=== PATIENT | male | born 1965 ===

== ENCOUNTER 2017-11-24 07:50 | Day surgery (SDC) | payer BC ==
[2017-11-24] MEDS ORDERED: fentaNYL 100 MCG/2 ML INJ IVP ONE (07:51)
[2017-11-24] MEDS ORDERED: NS 500 ML IV ONE (07:51)
[2017-11-24] MEDS ORDERED: MIDAZOLAM 2 MG/2 ML VIAL IVP ONE (07:51)
[2017-11-24] MEDS ORDERED: BENZOCAINE UNIT DOSE SPRAY HURRICAINE MM ONE (07:51)
[2017-11-24] MEDS ORDERED: ATROPINE SULFATE 1 MG/10 ML SYR ONE (09:03)
--- NOTE | 2017-11-24 09:21 | PDPROPOC ---
Sedation Plan of Care Sedation Plan of Care: vital signs stable, mental status noted, patient educated of risks, benefits, alternatives, patient can tolerate sedation ASA Classification: ASA 2 Planned drugs: fentanyl, midazolam Mallampati Score: Class 2 Mallampati Reference Image: Patient passed 3-3-2 rule?: Yes
--- NOTE | 2017-11-24 09:21 | PDHPUP ---
History & Physical Update H&P update statement: This history and physical update is based on an assessment of the patient which was completed after admission or registration (within 24 hours), but prior to the surgery/procedure. H&P update: H&P reviewed & patient examined, no change in patient's condition since H&P completed (Pt here for BERTA in the setting of sever AI and VSD )
[2017-11-24] MEDS ORDERED: fentaNYL 100 MCG/2 ML INJ ONE (09:35)
[2017-11-24] MEDS ORDERED: MIDAZOLAM 2 MG/2 ML VIAL ONE ×2 (09:35→09:49)
--- NOTE | 2017-11-24 11:12 | ECHO ---
[email or web address] [address] [address] Main: [phone] Fax: Transesophageal Echocardiography Name: ELIAS WORRELL MR#: [id number] Study Date: 11/24/2017 Study Time: 08:59 AM Date of : 1965 Age: 52 year(s) Height: ( ) Weight: ( ) BSA: Gender: Male Examination: BERTA Indication: Eval AI and VSD Image Quality: Contrast: Requested by: Sebastian Mastres Heart Rate: Rhythm: BP: 126 mmHg/60 mmHg Procedure Staff [employer] Internship: Josselyn Andujar RDCS Reading Physician: Sebastian Masters Requesting Provider: BERTA Exam Details Conclusions: Moderate concentric LV hypertrophy. Normal global systolic LV function. The aortic valve is tri-leaflet. Severe eccentric jet of aortic regurgitation.. Measurements: Chambers Valvular Assessment AV/MV Valvular Assessment TV/PV Normal Normal Normal Name Value Range Name Value Range Name Value Range Additional Measurements: Findings: Left Ventricle: Moderate concentric LV hypertrophy. Mild EPI is present. Normal global systolic LV function. No regional wall motion abnormality. Right Ventricle: Normal RV function. Left Atrium: The left atrium is normal in size. Left Atrial Appendage: No thrombus in left appendage. Right Atrium: Patient: ELIAS WORRELL Study Date: 11/24/2017 Page 1 of 2 08:59 AM The right atrium is normal in size. Mitral Valve: The mitral valve is normal in appearance. Trivial mitral valve regurgitation. Mild EPI is present. Aortic Valve: The aortic valve is tri-leaflet. Severe eccentric jet of aortic regurgitation.. Tricuspid Valve: The tricuspid valve appears normal. Trivial tricuspid valve regurgitation. Pulmonic Valve: The pulmonic valve is normal in appearance. Trivial pulmonic valve regurgitation. Pericardium: No pericardial effusion. l1n (No Signature Object) Patient: ELIAS WORRELL Study Date: 11/24/2017 Page 2 of 2 08:59 AM [id number]
--- NOTE | 2017-11-24 14:30 | CPIP ---
[f rep st] INVASIVE CARDIAC PROCEDURE DATE OF PROCEDURE: 11/24/2017 PROCEDURE PERFORMED: Transesophageal echocardiogram. INDICATION FOR PROCEDURE: Transthoracic echocardiogram demonstrating severe aortic insufficiency and evidence of a ventricular septal defect. DESCRIPTION OF PROCEDURE: After informed consent was obtained for both procedure and sedation, patihilda del rio was presented to the [facility]. The patient was sedated with fentanyl and Versed. He received a total of 125 mcg of fentanyl, and 6 mg of Versed. Once appropriate level of sedation was achieved, bite bl ock was in place, and BERTA probe was passed without incident. BERTA probe was used to take images of all cardiac structures with primary focus on his aortic valve an d aortic insufficiency. Please see complete 2D transthoracic echo report for full details. FINDINGS: 1. Severe eccentric aortic insufficiency. 2. Mild mitral systolic anterior motion without LVOT obstruction. Normal left ventricular size and function with moderate LVH. PLAN: 1. Patient will be seen in consultation by Dr. Sebastian Solitario. 2. Patient will follow up with me in the office in approximately 1 month. /[id number]/MODL
== END 2017-11-24 11:16 | disposition home or self-care (01) ==
LOC: FCATH 07:50
PROVIDERS: ATTEND Internal Medicine Cardiovascular Disease
PROC: B245ZZ4 Ultrasonography of Left Heart, Transesophageal (ICD-10-PCS; principal; 2017-11-24)
DX: Q21.0 Ventricular septal defect (principal); I35.1 Nonrheumatic aortic (valve) insufficiency; I25.10 Atherosclerotic heart disease of native coronary artery without angina pectoris; E78.5 Hyperlipidemia, unspecified; I10 Essential (primary) hypertension; R01.1 Cardiac murmur, unspecified
CPT/HCPCS: J0461; J2250; J3010